=== PATIENT | female | born 1980 | race Caucasian/White ===

== ENCOUNTER 2016-11-16 16:18 | Emergency (ER) | payer MEDICAID, OTHER ==
[2016-11-16 16:24] VITALS: O2SAT 94
[2016-11-16] MEDS ORDERED: OXYCODONE/APAP 5/325 TAB PO ONE (16:34)
--- NOTE | 2016-11-16 17:30 | EDPHY ---
H & P Smoking Status: Never smoked Time Seen by Provider: 11/16/16 16:23 HPI/ROS: CHIEF COMPLAINT: left wrist pain HISTORY OF PRESENT ILLNESS: 36-year-old [id number] female presents emergency department complaining of left wrist pain. Patient slipped and fell on outstretched left hand and had immediate. She reports she broke this same wrist 5 years ago. She reports tingling in her fingers. She denies elbow pain or shoulder pain, no head strike, no other complaints. (Trudi Cooley) Physical Exam: GEN: Awake, alert, oriented, no acute distress RESP: nl resp effort MSK: Left wrist with diffuse swelling, tenderness to palpation over snuffbox, ulnar styloid, distal radius. 2+ radial pulses, sensation intact to light touch , no elbow pain to palpation. SKIN: No break in skin, cap refill less than 2 seconds (Trudi Cooley) Constitutional: Initial Vital Signs Temperature (C) 36.3 C 11/16/16 16:21 Heart Rate 85 11/16/16 16:21 Respiratory Rate 18 11/16/16 16:21 Blood Pressure 139/85 H 11/16/16 16:21 O2 Sat (%) 94 11/16/16 16:21 O2 Delivery Mode Room Air Allergies/Adverse Reactions: No Known Allergies Allergy (Unverified 11/16/16 16:21) Home Medications: Medication Instructions Recorded Hydrocodone/APAP 5/325 [Whitefield 1 tab PO Q4H PRN #7 tab 11/16/16 5/325] MDM/Departure - [facility] Imaging: I viewed and interpreted images myself - [facility] Procedures: A sugar-tong Ortho Glass splint was applied. After application of the splint, I returned and re-examined the patient. The splint was adequately immobilizing the joint. The patients circulation and sensation were intact distal to the splint. (Trudi Cooley) Medications Given: Discontinued Medications Hydrocodone Bitart/Acetaminophen (Whitefield 5/325mg Prepack#6) 1 btl TAKEHOME EDNOW ONE Stop: 11/16/16 17:37 Last Admin: 11/16/16 17:44 Dose: 1 btl Oxycodone/Acetaminophen (Percocet 5/325) 2 tab PO EDNOW ONE Stop: 11/16/16 16:35 Last Admin: 11/16/16 16:42 Dose: 2 tab ED Course/Re-evaluation: Patient with a distal radius fracture and distal ulnar fracture. She has been placed in a sugar-tong splint and given Ortho for follow-up (Trudi Cooley) This patient was evaluated and managed by the nurse practitioner. I have reviewed the chart and agree with the findings and plan of care as documented. ( Maria De Jesus Verma) - Depart Disposition: Home, Routine, Self-Care Clinical Impression: Left wrist fracture Condition: Good Instructions: Hydrocodone/Acetaminophen (By mouth), Wrist Fracture in Adults ( ED) Additional Instructions: Rest, ice, elevate, keep splint clean and dry. Call tomorrow morning to schedule an appointment to be seen by the orthopedist at 1st available appointment. Take 600 mg of ibuprofen every 8 hours with food for 3-5 days, take Whitefield for severe pain. You have been prescribed a narcotic. This can cause drowsiness. Do not drive or operate any machinery while taking this. This can also cause constipation. Drink plenty of water, eat fiber and take stool softeners over the counter as needed. Prescriptions: Hydrocodone/APAP 5/325 [Whitefield 5/325] 1 tab PO Q4H PRN #7 tab PRN Reason: Pain, Moderate Referrals: Dylan Rodriguez MD [Medical Doctor] - As per Instructions (Orthopedist on-call )
[2016-11-16] MEDS ORDERED: HYDROCOD/APAP 5/325 PREPACK#6 BTL TAKEHOME ONE (17:36)
[2016-11-16 17:47] VITALS: BP 134/80; PULSE 82; RESP 16; TEMP 97.9
== END 2016-11-16 18:12 | disposition home or self-care (01) ==
DX: S52.502A Unspecified fracture of the lower end of left radius, initial encounter for closed fracture (principal); W01.0XXA Fall on same level from slipping, tripping and stumbling without subsequent striking against object, initial encounter
CPT/HCPCS: A4565